=== PATIENT | female | born 1990 | race African-American/Black ===

== ENCOUNTER 2018-10-23 18:03 | Emergency (ER) | payer MEDICAID ==
[~2018-10-23] VITALS: Wt 65.2 kg
[2018-10-23] MEDS ORDERED: SOD CHLORIDE 0.9% 1,000 ML IV STA (19:39)
[2018-10-23] MEDS ORDERED: CEFTRIAXONE 250 MG INJ IM ONE (20:00)
[2018-10-23] MEDS ORDERED: DOXYCYCLINE 100 MG TAB PO ONE (20:00)
[2018-10-23] MEDS ORDERED: SPIR100T4 PO (20:35)
[2018-10-23] MEDS ORDERED: ESTR1TAB23 PO (20:42)
[2018-10-23] MEDS ORDERED: DOXY100T20 PO (21:05)
--- NOTE | 2018-10-23 21:19 | ERD ---
ER Documentation Chief Complaint Chief Complaint bib self, cc: "I have HIV, I have STD, I have Diarrhea, I am homeless" HPI 28-year-old transgender genetic male transition to female who presents to the emergency room because of social issues. The patient states that she thinks she may have a sexually transmitted disease. The patient has anal intercourse, penetrative and notes perirectal anal pain with some discharge, no vesicular lesions. History of chlamydia in the past. The patient also describes occasional diarrhea. A history of HIV off medications for greater than 1 year, unknown CD4 and viral load but no AIDS defining illness in the past. She also states that she is homeless and seeking care home. ROS All systems reviewed and are negative except as per history of present illness. Medications Home Meds Active Scripts Doxycycline Hyclate* (Doxycycline Hyclate*) 100 Mg Tablet.dr, 100 MG PO BID for 7 Days, TAB Prov:ANA LEIVA MD 10/23/18 Reported Medications Estradiol* (Estrace*) Unknown Strength Tablet, 1 TAB PO BID, TAB 10/23/18 Spironolactone* (Spironolactone*) 100 Mg Tablet, 100 MG PO BID, TAB 10/23/18 Allergies Allergies: Coded Allergies: No Known Allergy (Unverified , 10/23/18) PMhx/Soc Medical and Surgical Hx: pt denies Medical Hx History of Surgery: Yes (breast augm.) Anesthesia Reaction: No Hx Neurological Disorder: No Hx Respiratory Disorders: No Hx Cardiac Disorders: No Hx Psychiatric Problems: Yes Hx Miscellaneous Medical Probl: Yes (HIV, STD) Hx Alcohol Use: Yes Hx Substance Use: Yes (meth, marijuana) Hx Tobacco Use: Yes Smoking Status: Current every day smoker FmHx Family History: No diabetes Physical Exam Vitals Vital Signs Date Temp Pulse Resp B/P (MAP) Pulse Ox O2 O2 Flow FiO2 Time Delivery Rate 10/23/18 98.7 105 13 129/74 100 Room Air 19:30 (92) 10/23/18 98.6 126 19 130/78 100 18:10 (95) Physical Exam General: Well developed, well nourished, no acute distress Head: Normocephalic, atraumatic. Eyes: Pupils equally reactive, EOM intact ENT: Moist mucous membranes Neck: Supple, no lymphadenopathy Respiratory: Lungs clear bilaterally, no distress Cardiovascular: RRR, no murmurs, rubs, or gallops Abdominal: Soft, non-tender, non-distended, no peritoneal signs : Deferred per patient req MSK: No edema, no unilateral swelling, 5/5 strength Neurologic: Alert and oriented, moving all extremities, normal speech, no focal weakness, no cerebellar signs Skin: No rash Psych: Normal mood Result Diagram: 10/23/18194510/23/181945 Results 24 hrs Laboratory Tests Test 10/23/18 19:46 White Blood Count 4.9 10^3/ul Red Blood Count 4.43 10^6/ul Hemoglobin 11.7 g/dl Hematocrit 36.9 % Mean Corpuscular Volume 83.3 fl Mean Corpuscular Hemoglobin 26.4 pg Mean Corpuscular Hemoglobin Concent 31.7 g/dl Red Cell Distribution Width 14.5 % Platelet Count 348 10^3/UL Mean Platelet Volume 8.9 fl Immature Granulocytes % 0.200 % Neutrophils % 39.4 % Lymphocytes % 40.7 % Monocytes % 13.0 % Eosinophils % 6.3 % Basophils % 0.4 % Nucleated Red Blood Cells % 0.0 /100WBC Immature Granulocytes # 0.010 10^3/ul Neutrophils # 1.9 10^3/ul Lymphocytes # 2.0 10^3/ul Monocytes # 0.6 10^3/ul Eosinophils # 0.3 10^3/ul Basophils # 0.0 10^3/ul Nucleated Red Blood Cells # 0.0 10^3/ul Sodium Level 142 mmol/L Potassium Level 4.7 mmol/L Chloride Level 103 mmol/L Carbon Dioxide Level 27 mmol/L Anion Gap 12 Blood Urea Nitrogen 11 mg/dl Creatinine 0.93 mg/dl Est Glomerular Filtrat Rate mL/min > 60 mL/min Glucose Level 72 mg/dl Calcium Level 9.2 mg/dl Current Medications Medications Dose Sig/Juliet Start Time Status Last (Trade) Ordered Route PRN Stop Time Admin Dose Reason Admin Sodium 1,000 ml @ Q1H STAT 10/23/18 DC 10/23/18 Chloride 1,000 mls/hr IV 19:39 19:52 10/23/18 20:38 Ceftriaxone 250 mg ONCE ONCE 10/23/18 DC 10/23/18 Sodium IM 20:00 20:09 (Rocephin) 10/23/18 20:01 Doxycycline 100 mg ONCE ONCE 10/23/18 DC 10/23/18 Hyclate PO 20:00 20:04 (Vibramycin) 10/23/18 20:01 Procedures/MDM LAB INTERPRETATION: * No acute process noted MEDICAL DECISION MAKING: The patient presents with signs and symptoms consistent with likely gonococcal or chlamydial proctitis. Patient will benefit from empiric treatment. The patient's main reason for visiting seems to be social related. The patient is homeless does not have access to primary care has not been taking HIV medications for greater than 1 year. The patient exhibits no signs or symptoms concerning for acute systemic illness. The patient will benefit from empiric treatment with ceftriaxone and doxycycline for proctitis. A social media marketing manager has been contacted. They cannot see the patient's night but will see the patient in the morning. The patient can wait in the waiting room and be evaluated by social media marketing manager for care home information, primary care referral and HIV clinic referral information. The patient is agreeable to this plan. ER COURSE: * Patient was given IV fluids, ceftriaxone, doxycycline, prescription was filled. * The patient is able to navigate the community. The patient was fed * mold loft worker will evaluate the patient in the morning for safe homeless d ischarge. * The patient is not an acute danger to herself or others CONSULTATION: social media marketing manager DISPOSITION PLAN: The patient does not have an identifiable emergent medical condition that warrants inpatient hospitalization at this time. The patient is deemed safe for discharge with outpatient follow-up. We discussed follow up with the patient's primary care doctor within 24 to 48 hours as needed. We also discussed return to the emergency room for worsening symptoms or worsening condition. Outpatient referral: None required Discharge Medications: Doxycycline Departure Diagnosis: Primary Impression: Proctitis Additional Impression: History of HIV infection Condition: Stable Patient Instructions: Std, Suspected (Culture Only) Referrals: COMMUNITY CLINICS YOU HAVE RECEIVED A MEDICAL SCREENING EXAM AND THE RESULTS INDICATE THAT YOU DO NOT HAVE A CONDITION THAT REQUIRES URGENT TREATMENT IN THE EMERGENCY DEPARTMENT. FURTHER EVALUATION AND TREATMENT OF YOUR CONDITION CAN WAIT UNTIL YOU ARE SEEN IN YOUR DOCTORS OFFICE WITHIN THE NEXT 1-2 DAYS. IT IS YOUR RESPONSIBILITY TO MAKE AN APPOINTMENT FOR FOLOW-UP CARE. IF YOU HAVE A PRIMARY DOCTOR --you should call your primary doctor and schedule an appointment IF YOU DO NOT HAVE A PRIMARY DOCTOR YOU CAN CALL OUR PHYSICIAN REFERRAL HOTLINE AT IF YOU CAN NOT AFFORD TO SEE A PHYSICIAN YOU CAN CHOSE FROM THE FOLLOWING [facility] [address] [facility] [address] [place] [facility] [address] [facility] [address] [facility] [address] [facility]. [facility]. [address] [facility] [place] YOU HAVE RECEIVED A MEDICAL SCREENING EXAM AND THE RESULTS INDICATE THAT YOU DO NOT HAVE A CONDITION THAT REQUIRES URGENT TREATMENT IN THE EMERGENCY DEPARTMENT. FURTHER EVALUATION AND TREATMENT OF YOUR CONDITION CAN WAIT UNTIL YOU ARE SEEN IN YOUR DOCTORS OFFICE WITHIN THE NEXT 1-2 DAYS. IT IS YOUR RESPONSIBILITY TO MAKE AN APPOINTMENT FOR FOLOW-UP CARE. IF YOU HAVE A PRIMARY DOCTOR --you should call your primary doctor and schedule and appointment IF YOU DO NOT HAVE A PRIMARY DOCTOR YOU CAN CALL OUR PHYSICIAN REFERRAL HOTLINE AT . IF YOU CAN NOT AFFORD TO SEE A PHYSICIAN YOU CAN CHOSE FROM THE FOLLOWING [facility] INSTITUTIONS: [facility] [address] [place] [address] [facility] [address] [place] [address] [facility] [address] [place] [address] Additional Instructions: Call your primary care doctor TOMORROW for an appointment during the next 1 WEEK.Tell the private secretary that you were referred from this facility.See the doctor sooner or return here if your condition worsens before your appointment time. ANA LEIVA MD Oct 23, 2018 21:19
[2018-10-23 21:35] VITALS: BP 125/76; PULSE 96; RESP 16
== END 2018-10-23 21:40 | disposition home or self-care (01) ==
LOC: E/R 18:03
DX: K62.89 Other specified diseases of anus and rectum (principal); F17.210 Nicotine dependence, cigarettes, uncomplicated; Z21 Asymptomatic human immunodeficiency virus [HIV] infection status
CPT/HCPCS: 36415; 80048; 80307; 85025; 86360; 96372; J7030; Z7502; Z7610

== ENCOUNTER 2018-10-23 21:52 | Emergency (ER) | payer MEDICAID ==
[~2018-10-23] VITALS: Wt 65.2 kg
[~2018-10-23 21:52] MED LIST: DOXY100T20 PO; ESTR1TAB23 PO; SPIR100T4 PO
--- NOTE | 2018-10-23 22:56 | ERD ---
ER Documentation Chief Complaint Chief Complaint Pts suicidal and plans to stand infront of traffic [place] per securi HPI This is a 28-year-old transgender genetic male transition to female who was just discharged by myself. The patient was seen initially for proctitis, social service issues. When the patient was discharged she became very upset. She then walked out to triage and stated that she was suicidal and walked outside to try and walk into the street. The patient states that now she is suicidal even though she did not mention any of this during her ER stay moments before. ROS All systems reviewed and are negative except as per history of present illness. Medications Home Meds Active Scripts Doxycycline Hyclate* (Doxycycline Hyclate*) 100 Mg Tablet.dr, 100 MG PO BID for 7 Days, TAB Prov:ANA LEIVA MD 10/23/18 Reported Medications Estradiol* (Estrace*) Unknown Strength Tablet, 1 TAB PO BID, TAB 10/23/18 Spironolactone* (Spironolactone*) 100 Mg Tablet, 100 MG PO BID, TAB 10/23/18 Allergies Allergies: Coded Allergies: No Known Allergy (Unverified , 10/23/18) PMhx/Soc History of Surgery: Yes (breast augm.) Anesthesia Reaction: No Hx Neurological Disorder: No Hx Respiratory Disorders: No Hx Cardiac Disorders: No Hx Psychiatric Problems: Yes Hx Miscellaneous Medical Probl: Yes (HIV, STD) Hx Alcohol Use: Yes Hx Substance Use: Yes (meth, marijuana) Hx Tobacco Use: Yes Smoking Status: Current every day smoker FmHx Family History: No diabetes Physical Exam Vitals Vital Signs Date Temp Pulse Resp B/P (MAP) Pulse Ox O2 O2 Flow FiO2 Time Delivery Rate 10/23/18 98.3 93 28 142/83 99 22:03 (102) Physical Exam General: Well developed, well nourished, no acute distress Head: Normocephalic, atraumatic. Eyes: Pupils equally reactive, EOM intact ENT: Moist mucous membranes Neck: Supple, no lymphadenopathy Respiratory: Lungs clear bilaterally, no distress Cardiovascular: RRR, no murmurs, rubs, or gallops Abdominal: Soft, non-tender, non-distended, no peritoneal signs : Deferred MSK: No edema, no unilateral swelling, 5/5 strength Neurologic: Alert and oriented, moving all extremities, normal speech, no focal weakness, no cerebellar signs Skin: No rash Psych: Flattened affect, reported suicidal ideation Procedures/MDM EKG/DIAGNOSTIC IMAGING: [None Required] LAB INTERPRETATION: The patient had laboratory testing from earlier today that showed no acute process. Alcohol is negative. Drug screen pending. MEDICAL DECISION MAKING: The patient's presentation is consistent with underlying psychiatric illness and likely exacerbation of this illness and/or psychosis. I am strongly suspicious for malingering in this patient. The patient had a prolonged ER evaluation during which time she did not mention any suicidal thoughts though she had screening. The patient upon discharge became very upset that she was not going to stay in the hospital. The patient then reported that she was suicidal. Regardless, the patient is maintaining that she is suicidal and will benefit from psychiatric evaluation. I have a much lower clinical concern for delirium or acute organic pathology such as toxicologic, metabolic, ischemic, intracranial hemorrhage, infectious process. However, we must rule this out prior to relying a diagnosis of underlying psychiatric illness. The patient's workup will include medical screening examination and appropriate laboratory testing. If the patient's medical examination does not reveal acute organic pathology the patient will be medically cleared for psychiatric evaluation. ER COURSE: The patient's evaluation does not suggest an acute organic pathology. At this time I believe the patient's presentation is very consistent with underlying psychiatric illness. The patient is medically cleared for psychiatric evaluation. CONSULTATION: Psychiatric consultation: Telemetry medicine psychiatry has been consulted on this case to evaluate the patient for possible acute psychiatric illness that would require inpatient hospitalization. DISPOSITION PLAN: Pending psychiatric evaluation Departure Diagnosis: Primary Impression: Suicidal ideation Additional Impression: Malingering Condition: Stable ANA LEIVA MD Oct 23, 2018 22:56
--- NOTE | 2018-10-23 23:21 | PSY ---
Date/Time of Note Date/Time of Note DATE: 10/23/18 TIME: 23:04 Psychiatric Subjective Eval Consent Pt consented to telemedicine: Yes Subjective Evaluation Patient location: emergency Chief Complaint: Pts suicidal and plans to stand infront of traffic Still/[place] per securi History of present illness She stated she walked in front of a car when she left the hospital because she wanted to kill herself and stated she thinks about doing this all the time. She stated she hears voices that never tell her to kill herself but say just about everything else. She stated that her fiancee in August which has caused her to feel quite depressed. She stated she feels hopeless about the future and has tried many times to kill herself and is determined to be successful eventually. Past psychiatric history Stated she was diagnosed with Schizophrenia but doesn't take any medications. Hospitalization: Suicidal Attempt(s) Family History No known family history of suicide. Medical history Problems Medical Problems: (1) History of HIV in father of unborn child Status: Acute (2) History of HIV infection Status: Acute (3) Malingering Status: Acute (4) Proctitis Status: Acute (5) Suicidal ideation Status: Acute Allergies: Coded Allergies: No Known Allergy (Unverified , 10/23/18) Substance Abuse Substance use: other Substance abuse history: Yes ("Slams" meth daily) Social History Marital status: single DPA/Conservatorship: No Occupation/Custodial: Has signed up for [employer], homeless. Psychiatric Objective Eval Mental Status Examination: Appearance: Groomed Eye Contact: Fair Psychomotor Activity: Normal Behavior: Cooperative Speech: Clear AFFECT: Appropriate Mood: Depressed Though Process: Linear Thought Content: Normal (Reported AH but no objective signs of psychosis) Suicidal: Yes Homicidal: No On 72 hour hold: No Orientation: x4 Cognition: Alert Insight: Impared Judgement: Impared Attention Span: Intact Assessment and Plan Assessment/Diagnosis Diagnosis Adjustment Disorder with Depressed Mood, Stimulant Abuse. Recommendation/Plan Discharge Disposition: Psychiatric inpatient Legal Status: Place involuntary hold ELYSIA RUELAS MD Oct 23, 2018 23:15
--- NOTE | 2018-10-24 18:53 | EN ---
Date/Time of Note Date/Time of Note DATE: 10/24/18 TIME: 18:52 ER Progress Note Psychiatric Observation Note: Indication: Suicidal ideation Duration: Greater than 20 hours Family history: As documented in original HPI The patient was observed with serial exams over the above timeframe. The patient continued to be well-appearing, and observation continued without complication. All other needs have been met during emergency department stay. Routine psychiatric medications ordered: Not requested by telemetry medicine psychiatry Hold status: Currently on 5150 hold Placement status: Pending placement and clearance for contracted right to [facility] ANA Joe MD Oct 24, 2018 18:53
[2018-10-24] MEDS ORDERED: HALOPERIDOL 5 MG INJ ONE (19:37)
[2018-10-24] MEDS ORDERED: DIPHENHYDRAMINE 50 MG INJ ONE (19:37)
[2018-10-24] MEDS ORDERED: LORAZEPAM 2 MG INJ ONE (19:38)
[2018-10-24] MEDS ORDERED: DIPHENHYDRAMINE 50 MG INJ IM ONE (20:00)
[2018-10-24] MEDS ORDERED: LORAZEPAM 2 MG INJ IM ONE (20:00)
[2018-10-24] MEDS ORDERED: HALOPERIDOL 5 MG INJ IM ONE (20:00)
[2018-10-25 03:10] VITALS: BP 120/75; PULSE 88; RESP 16
== END 2018-10-25 03:10 ==
LOC: E/R 21:52
DX: R45.851 Suicidal ideations (principal); F17.210 Nicotine dependence, cigarettes, uncomplicated; Z21 Asymptomatic human immunodeficiency virus [HIV] infection status; Z76.5 Malingerer [conscious simulation]
CPT/HCPCS: 80307; J1200; J1630; J2060; 96372